=== PATIENT | male | born 1970 | race Caucasian/White ===

== ENCOUNTER 2018-10-28 10:30 | Emergency (ER) | payer SELFPAY ==
[~2018-10-28] VITALS: Ht 182.9 cm; Wt 103.0 kg
[2018-10-28 11:12] VITALS: BP 177/108
== END 2018-10-28 15:02 | disposition left against medical advice (07) ==
LOC: ER 10:31
DX: M79.641 Pain in right hand (principal); Z53.21 Procedure and treatment not carried out due to patient leaving prior to being seen by health care provider
CPT/HCPCS: 73130; 99281